=== PATIENT | female | born 1960 | race Caucasian/White ===

== ENCOUNTER 2019-08-25 09:17 | Outpatient (CLI) | payer OTHER, SELFPAY ==
--- NOTE | ~2019-08-25 | MM_ITS ---
EXAMINATION: MM screening amy BI w naeem HISTORY: Screening mammogram TECHNIQUE: Craniocaudal and mediolateral oblique 3-D tomosynthesis images were obtained and synthetic 2-D images were generated. CAD analysis was submitted and interpreted. COMPARISON: 08/19/2018, 08/13/2017, 07/17/2016 bilateral digital screening mammogram examinations BREAST PARENCHYMAL COMPOSITION: There are scattered areas of fibroglandular density. FINDINGS: There is a biopsy marker posteriorly in the upper outer quadrant of the right breast; histo ry of prior benign right breast biopsy. Occasional benign calcifications. There is no evidence of suspicious mass, calcification, or architec tural distortion to suggest malignancy in either breast. There has been no suspicious interval change . IMPRESSION: 1. No mammographic evidence of malignancy. 2. Recommend routine screening mammography in one year. BI-RADS Category 2: Benign finding(s). Reviewed, dictated and finalized at location A.
== END 2019-08-25 09:18 | disposition home or self-care (01) ==
LOC: ANHIMG 09:21
PROVIDERS: PCP Family Medicine; Visit Provider Obstetrics & Gynecology
DX: Z12.31 Encounter for screening mammogram for malignant neoplasm of breast (principal)
CPT/HCPCS: 77063; 77067

== ENCOUNTER 2020-09-27 09:39 | Outpatient (CLI) | payer OTHER, SELFPAY ==
--- NOTE | ~2020-09-27 | MM_ITS ---
EXAMINATION: MM screening amy BI w naeem HISTORY: Screening mammogram TECHNIQUE: Craniocaudal and mediolateral oblique 3-D tomosynthesis images were obtained and synthetic 2-D images were generated. Bilateral rotated lateral CC views. CAD analysis was submitted and interp reted. COMPARISON: No prior mammogram is available for comparison at this institution. BREAST PARENCHYMAL COMPOSITION: There are scattered areas of fibroglandular density. FINDINGS: Benign appearing stable calcified fibroadenoma in the upper outer quadrant of the right vito ast, with nearby biopsy marker. There is no evidence of suspicious mass, calcification, or architectu ral distortion to suggest malignancy in either breast. There has been no suspicious interval change. IMPRESSION: 1. No mammographic evidence of malignancy. 2. Recommend routine screening mammography in one year. BI-RADS Category 2: Benign finding(s). Reviewed, dictated and finalized at location A.
== END 2020-09-27 09:40 | disposition home or self-care (01) ==
PROVIDERS: PCP Family Medicine; Visit Provider Obstetrics & Gynecology
DX: Z12.31 Encounter for screening mammogram for malignant neoplasm of breast (principal)
CPT/HCPCS: 77063; 77067

== ENCOUNTER 2020-10-03 10:04 | Outpatient (CLI) | payer OTHER, SELFPAY ==
--- NOTE | ~2020-10-03 | DEXA_ITS ---
Bone Density Report Name: Mayra Hurst Age: 60 Sex: Female Ethnicity: White Date of : 1960 Indication: postmenopausal; height loss; hysterectomy; Referring Provider: CARLOS LARKIN Study: Bone densitometry was performed. Exam Date: October 03, 2020 Accession number: [id number] Bone Density: Region BMD T-score Z-score Classification AP Spine (L1-L4) 1.110 0.6 2.0 Normal Femoral Neck (Left) 0.776 -0.7 0.6 Normal Total Hip (Left) 0.859 -0.7 0.3 Normal Total Hip Bilateral Avg 0.847 -0.8 0.2 Normal Femoral Neck (Right) 0.776 -0.7 0.6 Normal Total Hip (Right) 0.833 -0.9 0.1 Normal World Health Organization criteria for BMD impression classify patients as: Normal (T-score at or above -1.0), Osteopenia (T-score between -1.0 and -2.5), or Osteoporosis (T-score at or below -2.5). 10-year Fracture Risk: FRAX not reported because: All T-scores for Spine Total, Hip Total, Femoral Neck at or above -1.0 Previous Exams: Region Exam Age BMD T-score BMD Change BMD Change Date g/cm2 vs Baseline vs Previous AP Spine(L1-L4) 10/03/2020 60 1.110 0.6 -0.068(-5.8%)# -0.023(-2.0%)* 09/16/2018 58 1.133 0.8 -0.045(-3.8%)# 0.007(0.7%) 08/14/2016 56 1.125 0.7 -0.053(-4.5%)# -0.036(-3.1%)* 07/06/2014 54 1.161 1.0 -0.017(-1.4%)# -0.017(-1.4%)# 06/17/2012 52 1.178 1.2 Total Hip(Left) 10/03/2020 60 0.859 -0.7 -0.087(-9.2%)# -0.064(-7.0%)* 09/16/2018 58 0.924 -0.2 -0.022(-2.4%)# 0.026(2.9%) 08/14/2016 56 0.898 -0.4 -0.048(-5.1%)# -0.012(-1.3%) 07/06/2014 54 0.909 -0.3 -0.037(-3.9%)# -0.037(-3.9%)# 06/17/2012 52 0.946 0.0 Total Hip(Right) 10/03/2020 60 0.833 -0.9 -0.063(-7.0%)# -0.001(-0.1%) 09/16/2018 58 0.834 -0.9 -0.062(-6.9%)# -0.007(-0.8%) 08/14/2016 56 0.841 -0.8 -0.055(-6.2%)# -0.018(-2.1%) 07/06/2014 54 0.858 -0.7 -0.038(-4.2%)# -0.038(-4.2%)# 06/17/2012 52 0.896 -0.4 *Denotes significance at 95% confidence level, LSC for AP Spine = 0.022 g/cm2, LSC for Total Hip = 0.027 g/cm2 Clinical Information Provided by Patient: Has used the following medications: Vitamin D, Calcium Has the following medical conditions: Hysterectomy Patient maximum height was 67 Menopause Age: 50 Onset of menses at age 11 Number of children 0 Impression: The patient has normal bone mass. The BMD for the AP Spine(L1-L4) decreased, changing by -2.0% since the last DXA exam. The BMD
== END 2020-10-03 10:05 | disposition home or self-care (01) ==
LOC: ANHIMG 10:08
PROVIDERS: PCP Family Medicine; Visit Provider Obstetrics & Gynecology
DX: Z13.820 Encounter for screening for osteoporosis (principal); Z78.0 Asymptomatic menopausal state
CPT/HCPCS: 77080

== ENCOUNTER → 2021-01-22 08:10 | Outpatient (CLI) | payer OTHER, SELFPAY ==
--- NOTE | ~2021-01-22 | XR_ITS ---
EXAMINATION: XR abdomen/kub 1V EXAM DATE: 01/22/2021 09:09 INDICATION: Other microscopic hematuria. TECHNIQUE: Frontal projection(s) of the abdomen for interpretation. Correlation is made to CT urogram same date. FINDINGS: Left sided 4 mm kidney stone identified, indicated. Bowel anastomosis material. Nonobstruct shaylee bowel gas pattern. No organomegaly. Some bony degenerative changes. IMPRESSION: Left nephrolithiasis. Reviewed, dictated and finalized at location B. IMPRESSION: Left nephrolithiasis.
--- NOTE | ~2021-01-22 | CT_ITS ---
EXAMINATION: CT abdomen pelvis wo/w con EXAM DATE: 01/22/2021 09:02 INDICATION: Other microscopic hematuria . TECHNIQUE: Spiral CT of the abdomen and pelvis was performed without contrast. The patient was then injected with small bolus intravenous Omnipaque 350, followed by delay of approximately 10 minutes to allow collecting system to opacify. A post contrast scan abdomen and pelvis was performed during inj ection of remaining contrast. A total of 130 cc intravenous contrast was administered. The dose-salima th product (DLP) for this examination was 1311.23 mGy-cm. The exposure was tailored according to pat ient size (auto mA exposure control), and iterative reconstruction (ASIR) was used as additional dose reduction technique. Comparison is made to prior examination from 03/11/2008. FINDINGS: There is 4 mm left nephrolithiasis. There are left renal peripelvic cysts. 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 The kidneys enhance symmetrically. There are no suspicious renal lesions. The calyces and opacified portions of ureters are unremarkable, without filling defects or focal suspicious strictures. The bladder is un remarkable. The uterus is not identified and has likely been surgically resected. The largest liver cyst is in the left liver lobe, measures 1.5 cm. The spleen, pancreas, and adrenal glands are unremarkable. Gallbladder is unremarkable. No biliary obstruction. There is no retrope ritoneal or pelvic lymphadenopathy. There is mild scattered arteriosclerotic disease. The appendix is not positively visualized. There is no pericecal inflammatory change to suggest appe ndicitis. There are several small bowel anastomosis sites. There is mild scattered colonic colonic di verticulosis. There is no adjacent inflammatory change to suggest diverticulitis. The stomach and sm all bowel are unremarkable. There is expected amount of colonic stool. No free intraperitoneal gas . Mild cardiomegaly. Some dependent groundglass opacities, mosaic attenuation. Could be mild edema or air trapping. There are no osteoblastic or osteolytic lesions identified. IMPRESSION: 1. Duplicated right ureters. 2. Left nephrolithiasis. Reviewed, dictated and finalized at location B.
[2021-01-22 08:38] LABS: Estimated Glomerular Filt Rate > 60
== END ==
PROVIDERS: Visit Provider Urology
DX: R31.29 Other microscopic hematuria (principal); N20.0 Calculus of kidney
CPT/HCPCS: 74018; 74178; Q9967

== ENCOUNTER 2021-04-23 00:47 | Day surgery (SDC) | payer OTHER, SELFPAY ==
[2021-04-11 11:24] VITALS: BMI 24.1
[2021-04-23 10:05] VITALS: BP 124/78; PULSE 69; RESP 18; TEMP 36.8; O2SAT 100
--- NOTE | 2021-04-23 10:14 | PM.HPGS ---
History of Present Illness History of Present Illness Consent: Risks, benefits, and alternatives have been discussed and questions answered. Patient agrees to proceed with procedure. Chief complaint: neoplasm screening Narrative: Mayra Hurst is a 60 year old female here for screening colonoscopy, last one 10 years ago Review of Systems Constitutional: Constitutional: Denies headache(s) and Denies weakness Eyes: Eyes: Denies blurry vision ENT: Reports Normal hearing present, Denies headache(s) and Denies neck pain Cardiovascular: Cardiovascular: Denies chest pain and Denies dyspnea Respiratory: Respiratory: Denies dyspnea Gastrointestinal: Gastrointestinal: Reports no additional gastrointestinal complaints Genitourinary: Genitourinary: Denies dysuria Musculoskeletal: Musculoskeletal: Denies neck pain Integumentary/Breasts: Skin/Breast: Denies dry skin Neurologic: Reports Normal hearing present, Denies headache(s) and Denies weakness Psychiatric: Psychiatric: Denies anxiety Endocrine: Endocrine: Denies change in body appearance Hematologic/Lymphatic: Hematologic/Lymphatic: Denies easy bleeding Allergic/Immunologic: Allergic/Immunologic: Denies urticaria PMFSH Past Medical History Medical History (Updated 04/23/21 @ 10:15 by Neftaly Bingham MD) Colon cancer screening Hypercholesteremia Hyperlipidemia Vitamin B12 deficiency Vitamin D deficiency Surgical History Surgical History History of appendectomy 01/2010 History of total hysterectomy 01/2010 Family History Family History Mother Hypertension Grandparent Cerebrovascular accident Other Diabetes mellitus Family history of cardiovascular disease Social History Social History Smoking status: Never smoker Second hand tobacco smoke exposure: No Alcohol intake: never Substance use: never Substance use type: does not use Living arrangements: alone Additional occupation/education comments: [employer] Gender identity (if verbalized by the patient): Female Spiritual care concerns: No Meds Home Medications and Allergies Home Medications Medication Instructions Recorded Confirmed Type cholecalciferol (vitamin D3) 50 50 mcg PO DAILY 05/06/20 04/23/21 History mcg (2,000 unit) capsule rosuvastatin 20 mg tablet 20 mg PO .QHS #90 tablet 11/20/20 04/11/21 Rx Allergies Allergy/AdvReac Type Severity Reaction Status Date / Time No Known Allergies Allergy Mild Verified 04/23/21 10:04 Vital Signs Vital Signs - 24 hr 04/23/21 10:05 Temperature 98.2 F Pulse Rate 69 Respiratory Rate 18 Blood Pressure 124/78 Pulse Oximetry 100 Exam Const: General: comfortable and no acute distress HENMT: General nose exam: Normal nares present Eyes: General: appearance normal, both eyes and all related structures Neck: Neck: no JVD Resp: Auscultation: clear to auscultation bilaterally Cardio: Rate: regular rate Rhythm: regular rhythm GI: Inspection: non-distended GI Palp: Yes Soft to palpation Skin: General skin exam: normal color Neuro: General: gait normal Speech: normal speech Extrem: General: normal to inspection Psych: Mental Status: mental status grossly normal Assessment and Plan Assessment and plan (1) Colon cancer screening: Code(s): Z12.11 - Encounter for screening for malignant neoplasm of colon Status: Acute Assessment and Plan: colonoscopy
[2021-04-23] MEDS: LACTATED RINGERS 1,000 ML 150 ML IV CONT (10:15)
--- NOTE | 2021-04-23 10:18 | WPDANESEPPF ---
Anes - Initial Pre Proc Eval Procedure: Operation Date: 04/23/21 11:00 Proposed Procedures p Screening Colonoscopy - Neftaly Bingham MD Date/Time: 04/23/21 10:18 Surgeon: Neftaly Bingham MD Pre Op Diagnosis: neoplasm screening Patient Data Age: 60 Gender: F Height: 1.7 m Weight: 67.9 kg Last Vital Signs Temp 98.2 F 04/23/21 10:05 Pulse 69 04/23/21 10:05 Resp 18 04/23/21 10:05 BP 124/78 04/23/21 10:05 Pulse Ox 100 04/23/21 10:05 Allergies Allergy/AdvReac Type Severity Reaction Status Date / Time No Known Allergies Allergy Mild Verified 04/23/21 10:04 Home Medications Medication Instructions Recorded Confirmed Type cholecalciferol (vitamin D3) 50 50 mcg PO DAILY 05/06/20 04/23/21 History mcg (2,000 unit) capsule rosuvastatin 20 mg tablet 20 mg PO .QHS #90 tablet 11/20/20 04/11/21 Rx Patient hx anesthesia problems: none Family hx anesthesia problems: none Results Review: All pre-operative results and documents have been reviewed as part of the pre-operative evaluation. [facility] Past Medical History Medical History (Updated 04/23/21 @ 10:15 by Neftaly Bingham MD) Colon cancer screening Hypercholesteremia Hyperlipidemia Vitamin B12 deficiency Vitamin D deficiency Surgical History Surgical History History of appendectomy 01/2010 History of total hysterectomy 01/2010 Family History Family History Mother Hypertension Grandparent Cerebrovascular accident Other Diabetes mellitus Family history of cardiovascular disease Social History Social History Smoking status: Never smoker Second hand tobacco smoke exposure: No Alcohol intake: never Substance use: never Substance use type: does not use Living arrangements: alone Additional occupation/education comments: [employer] Gender identity (if verbalized by the patient): Female Spiritual care concerns: No Anes - Eval Final PreProcedure Day of Procedure 04/23/21 10:18 Patient weight: normal Heart: regular rate and rhythm Lungs: clear to auscultation Airway: Mallampati scale class II Neurological: alert and oriented Last oral intake: >/= 8 hours ASA classification: II Emergent: no Anesthetic plan: proceed Anesthesia type and monitoring: general GIVS and standard monitoring Results Review: All pre-operative results and documents have been reviewed as part of the pre-operative evaluation. Informed Consent: The patient's anesthetic plan and its attendant risks and benefits were discussed with the patient/family/POA. Questions were solicited and answers provided to the satisfaction of the patient/family/POA.
[2021-04-23 10:34] VITALS: BP 94/58; PULSE 67; RESP 17; O2SAT 97
[2021-04-23 10:44] VITALS: BP 102/56; PULSE 64; RESP 23; O2SAT 99
[2021-04-23 10:54] VITALS: BP 118/75; PULSE 62; RESP 20; O2SAT 99
== END 2021-04-23 11:01 | disposition home or self-care (01) ==
PROVIDERS: PCP Family Medicine; Visit Provider Internal Medicine Gastroenterology
PROC: 0DJD8ZZ Inspection of Lower Intestinal Tract, Via Natural or Artificial Opening Endoscopic (ICD-10-PCS; CPT 45378; principal; 2021-04-23 11:00)
DX: Z12.11 Encounter for screening for malignant neoplasm of colon (principal); E78.00 Pure hypercholesterolemia, unspecified; E78.5 Hyperlipidemia, unspecified; E53.8 Deficiency of other specified B group vitamins; E55.9 Vitamin D deficiency, unspecified; K57.30 Diverticulosis of large intestine without perforation or abscess without bleeding
CPT/HCPCS: 45378; J2704; J7120

== ENCOUNTER 2021-07-24 10:19 | Outpatient (CLI) | payer OTHER, SELFPAY ==
--- NOTE | ~2021-07-24 | XR_ITS ---
EXAMINATION: XR abdomen/kub 1V INDICATION: Left-sided kidney stone TECHNIQUE: Supine views of the abdomen were obtained on 2 radiographs. COMPARISON: 01/22/2021 FINDINGS: A stable 4 mm stone projects in the left kidney upper pole. No additional urinary tract lyn culi are seen. There are surgical changes in the right mid abdomen and right pelvis. Mild osteoarthri tis is noted in the hips. IMPRESSION: 1. Stable left nephrolithiasis. Reviewed, dictated and finalized at location B.
== END 2021-07-24 10:20 | disposition home or self-care (01) ==
LOC: ANHIMG 10:23
PROVIDERS: PCP Family Medicine; Visit Provider Nurse Practitioner Family
DX: N20.0 Calculus of kidney (principal)
CPT/HCPCS: 74018

== ENCOUNTER 2021-10-10 09:25 | Outpatient (CLI) | payer OTHER, SELFPAY ==
--- NOTE | ~2021-10-10 | MM_ITS ---
EXAMINATION: MM screening [facility] BI w naeem HISTORY: Screening mammogram TECHNIQUE: Craniocaudal and mediolateral oblique 3-D tomosynthesis images were obtained and synthetic 2-D images were generated. CAD analysis was submitted and interpreted. COMPARISON: 09/27/2020, 08/25/2019, 08/19/2018 BREAST PARENCHYMAL COMPOSITION: The breasts are heterogeneously dense, which may obscure small masses . FINDINGS: Scattered benign-appearing calcifications are present. There is no suspicious mass, calcifi cation, or architectural distortion to suggest malignancy in either breast. There has been no suspici ous interval change. IMPRESSION: 1. No mammographic evidence of malignancy. 2. Recommend routine screening mammography in one year. BI-RADS Category 2: Benign finding(s). Reviewed, dictated and finalized at location A.
== END 2021-10-10 09:26 | disposition home or self-care (01) ==
LOC: ANHIMG 09:26
PROVIDERS: PCP Family Medicine; Visit Provider Obstetrics & Gynecology
DX: Z12.31 Encounter for screening mammogram for malignant neoplasm of breast (principal)
CPT/HCPCS: 77063; 77067

== ENCOUNTER 2021-12-11 10:25 | Outpatient (CLI) | payer OTHER, SELFPAY ==
[2021-12-11 13:06] LABS: Eosinophils Absolute Auto 0.1 K/mm3 (0-0.3); Eosinophils Percent Auto 1.8 % (0-4.4); Hematocrit 38.9 % (37.0-47.0); Hemoglobin 12.5 g/dL (12.0-15.0); Immature Granulocyte Absolute 0.01 K/mm3 (0.00-0.031); Immature Granulocyte Percent A 0.3 % (0-0.5); Lymphocytes Percent Auto 28.6 % (18.3-44.2); Mean Corpuscular HGB Conc 32.1 g/dl (32-36); Mean Corpuscular Hemoglobin 30.9 pg (26-34); Mean Platelet Volume 10.6 fl (7.4-10.4); Monocytes Absolute Auto 0.4 K/mm3 (0.1-0.6); Monocytes Percent Auto 10.1 % (2.6-8.5); Neutrophils Absolute Auto 2.2 K/mm3 (1.3-6.7); Neutrophils Percent Auto 58.2 % (45.5-73.1); Platelet Count Result 309 k/mm3 (150-375); Red Blood Count 4.05 M/mm3 (4.2-5.4); Red Cell Distribution Width 13.2 % (11.5-14.5); White Blood Count 3.9 K/mm3 (4.5-10.0)
[2021-12-11 13:20] LABS: Albumin Level 4.4 g/dL (3.5-5.1); Bilirubin,Total 0.5 mg/dL (0.2-1.3); Carbon Dioxide 28 mmol/L (22-30); Chloride 101 mmol/L (98-107)
[2021-12-11 13:54] LABS: Thyroid Stimulating Hormone Reflex 0.919 uIU/mL (0.465-4.68)
[2021-12-12 04:48] LABS: Anion Gap 8 mmol/L (8-16); Sodium 137 mmol/L (137-145)
[2021-12-12 04:49] LABS: Blood Urea Nitrogen 17 mg/dL (7-17); Estimated Glomerular Filt Rate > 60; Potassium 4.6 mmol/L (3.4-5.0)
[2021-12-12 04:50] LABS: Aspartate Amino Transferase 30 U/L (14-36); Calcium 9.1 mg/dL (8.4-10.2); Glucose 95 mg/dL (65-110)
[2021-12-12 04:51] LABS: Alanine Aminotransferase 20 U/L (6-35); Total Protein 7.1 g/dL (6.3-8.2); Triglycerides 65 mg/dL (<150)
[2021-12-12 04:52] LABS: Alkaline Phosphatase 78 U/L (38-126); Cholesterol 195 mg/dL (0-200); HDL Direct 66 mg/dL; LDL Cholesterol Direct 98 mg/dL
== END 2021-12-11 10:26 | disposition home or self-care (01) ==
LOC: ANHGOSHLAB 10:31
PROVIDERS: PCP Family Medicine; Visit Provider Family Medicine
DX: E78.5 Hyperlipidemia, unspecified (principal); Z79.899 Other long term (current) drug therapy; E55.9 Vitamin D deficiency, unspecified; Z13.29 Encounter for screening for other suspected endocrine disorder
CPT/HCPCS: 36415; 80053; 80061; 82306; 84443; 85025

== ENCOUNTER 2022-08-11 10:32 | Outpatient (CLI) | payer OTHER, SELFPAY ==
--- NOTE | ~2022-08-11 | XR_ITS ---
XR abdomen/kub 1V 08/11/2022 10:54 INDICATION: Angiomyolipoma TECHNIQUE: KUB COMPARISON: 07/24/2021 FINDINGS: Bowel gas pattern is normal. There is no evidence of free air, mass, organomegaly, ascites or obstruction. There is a left renal stone. Kidneys partially obscured by bowel content. The bones appear intact. IMPRESSION: 1: Left nephrolithiasis.. Reviewed, dictated and finalized at location L. IMPRESSION: 1: Left nephrolithiasis..
== END 2022-08-11 10:33 | disposition home or self-care (01) ==
LOC: ANHIMG 10:42
PROVIDERS: PCP Family Medicine; Visit Provider Nurse Practitioner Family
DX: D17.71 Benign lipomatous neoplasm of kidney (principal); N20.0 Calculus of kidney
CPT/HCPCS: 74018

== ENCOUNTER 2022-08-26 12:38 | Outpatient (CLI) | payer OTHER, SELFPAY ==
--- NOTE | ~2022-08-26 | CT_ITS ---
EXAMINATION: CT abdomen pelvis wo con DATE: 08/26/2022 13:23 INDICATION: Left kidney stone TECHNIQUE: Computed tomography (CT) of the abdomen and pelvis was performed without intravenous contr ast. The dose-length product (DLP) was 200.92 mGy-cm. Automated exposure control and iterative recons truction technique were employed. COMPARISON: 01/22/2021 FINDINGS: There is chronic atelectasis of the visualized lung bases. The heart size is normal. Cysts of the liver measure up to 1.5 cm in the left hepatic lobe. The spleen and pancreas are normal. The g allbladder is surgically absent. Stable low-density masses of the adrenal glands are consistent with adenomas. The right kidney is unremarkable. There is an 5 mm nonobstructing stone of the left kidney. Peripelvic cysts are also noted in the left kidney. No stones are identified in the ureters or bladd er. No hydronephrosis or hydroureter. Colonic diverticulosis is present without evidence of diverticu litis. No pathologically enlarged abdominal or pelvic lymph nodes are identified. No free intraperito antonia gas or evidence of bowel obstruction. There are surgical changes in the small bowel. There is mo derate lumbar spondylosis. IMPRESSION: 1. Nonobstructing left nephrolithiasis. Reviewed, dictated and finalized at location B.
== END 2022-08-26 12:39 | disposition home or self-care (01) ==
PROVIDERS: PCP Family Medicine; Visit Provider Nurse Practitioner Family
DX: N20.0 Calculus of kidney (principal)
CPT/HCPCS: 74176

== ENCOUNTER 2022-11-25 10:26 | Outpatient (CLI) | payer OTHER, SELFPAY ==
--- NOTE | ~2022-11-25 | XR_ITS ---
XR abdomen/kub 1V 11/25/2022 10:42 Indication: Kidney stone Procedure: KUB Comparison: CT dated 08/26/2022 Findings: There is a left renal stone. There is a gallstone. Bowel pattern nonobstructive. Mild lumba r spondylosis. No acute osseous abnormality. Impression: 1: Left renal stone measuring approximately 4 mm. 2: Cholelithiasis. Reviewed, dictated and finalized at location A. Impression: 1: Left renal stone measuring approximately 4 mm. 2: Cholelithiasis.
== END 2022-11-25 10:27 | disposition home or self-care (01) ==
PROVIDERS: PCP Family Medicine; Visit Provider Urology
DX: N20.0 Calculus of kidney (principal); K80.20 Calculus of gallbladder without cholecystitis without obstruction
CPT/HCPCS: 74018

== ENCOUNTER 2022-12-31 11:05 | Outpatient (CLI) | payer OTHER, SELFPAY ==
[2022-12-31 20:00] LABS: LDL Cholesterol Direct 96 mg/dL
[2022-12-31 20:06] LABS: Basophils Percent Auto 0.8 % (0.2-1.2); Hematocrit 41.3 % (37.0-47.0); Hemoglobin 13.8 g/dL (12.0-15.0); Lymphocytes Absolute Auto 1.24 K/mm3 (0.9-3.2); Lymphocytes Percent Auto 31.4 % (18.3-44.2); Mean Corpuscular HGB Conc 33.4 g/dl (32-36); Mean Corpuscular Hemoglobin 31.7 pg (26-34); Mean Corpuscular Volume 94.9 fl (80-100); Mean Platelet Volume 10.6 fl (7.4-10.4); Monocytes Absolute Auto 0.5 K/mm3 (0.1-0.6); Monocytes Percent Auto 12.7 % (2.6-8.5); Neutrophils Absolute Auto 2.1 K/mm3 (1.3-6.7); Neutrophils Percent Auto 54.1 % (45.5-73.1); Platelet Count Result 327 k/mm3 (150-375); Red Blood Count 4.35 M/mm3 (4.2-5.4); Red Cell Distribution Width 13.2 % (11.5-14.5)
[2022-12-31 20:33] LABS: Alanine Aminotransferase 26 U/L (6-35); Albumin Level 4.6 g/dL (3.5-5.1); Alkaline Phosphatase 87 U/L (38-126); Anion Gap 4 mmol/L (8-16); Aspartate Amino Transferase 45 U/L (14-36); Blood Urea Nitrogen 16 mg/dL (7-17); Calcium 9.2 mg/dL (8.4-10.2); Carbon Dioxide 29 mmol/L (22-30); Chloride 103 mmol/L (98-107); Cholesterol 196 mg/dL (0-200); Estimated Glomerular Filt Rate > 60; Glucose 93 mg/dL (65-110); HDL Direct 71 mg/dL; Potassium 4.5 mmol/L (3.4-5.0); Sodium 136 mmol/L (137-145); Triglycerides 70 mg/dL (<150)
[2022-12-31 21:34] LABS: Vitamin D 25 Hydroxy 38.5 ng/mL
[2022-12-31 22:06] LABS: Thyroid Stimulating Hormone Reflex 0.973 uIU/mL (0.465-4.68)
== END 2022-12-31 11:06 | disposition home or self-care (01) ==
LOC: ANHGOSHLAB 11:07
PROVIDERS: PCP Family Medicine; Visit Provider Family Medicine
DX: E78.5 Hyperlipidemia, unspecified (principal); R32 Unspecified urinary incontinence; Z13.29 Encounter for screening for other suspected endocrine disorder; Z00.00 Encounter for general adult medical examination without abnormal findings; Z79.899 Other long term (current) drug therapy; E55.9 Vitamin D deficiency, unspecified; E53.8 Deficiency of other specified B group vitamins
CPT/HCPCS: 36415; 80053; 80061; 82306; 82607; 84443; 85025

== ENCOUNTER 2023-01-06 10:08 | Outpatient (CLI) | payer OTHER, SELFPAY ==
--- NOTE | ~2023-01-06 | MM_ITS ---
EXAMINATION: MM screening amy BI w naeem HISTORY: Screening mammogram TECHNIQUE: Craniocaudal and mediolateral oblique 3-D tomosynthesis images were obtained and synthetic 2-D images were generated. CAD analysis was submitted and interpreted. COMPARISON: 10/10/2021, 09/19/2020, 08/25/2019 bilateral screening mammogram examinations BREAST PARENCHYMAL COMPOSITION: The breasts are heterogeneously dense, which may obscure small masses . FINDINGS: There is a biopsy marker on the right; history of prior benign right breast biopsy. Occasional benign calcifications. There is no evidence of suspicious mass, calcification, or architec tural distortion to suggest malignancy in either breast. There has been no suspicious interval change . IMPRESSION: 1. No mammographic evidence of malignancy. 2. Recommend routine screening mammography in one year. BI-RADS Category 2: Benign finding(s). Reviewed, dictated and finalized at location A.
== END 2023-01-06 10:09 | disposition home or self-care (01) ==
LOC: ANHIMG 10:10
PROVIDERS: PCP Family Medicine; Visit Provider Obstetrics & Gynecology
DX: Z12.31 Encounter for screening mammogram for malignant neoplasm of breast (principal)
CPT/HCPCS: 77063; 77067

== ENCOUNTER 2023-02-11 10:52 | Outpatient (CLI) | payer OTHER, SELFPAY ==
[2023-02-11 13:08] LABS: Alanine Aminotransferase 22 U/L (6-35); Albumin Level 4.8 g/dL (3.5-5.1); Alkaline Phosphatase 72 U/L (38-126); Anion Gap 8 mmol/L (8-16); Aspartate Amino Transferase 27 U/L (14-36); Bilirubin,Total 0.8 mg/dL (0.2-1.3); Blood Urea Nitrogen 12 mg/dL (7-17); Calcium 9.3 mg/dL (8.4-10.2); Carbon Dioxide 27 mmol/L (22-30); Chloride 104 mmol/L (98-107); Estimated Glomerular Filt Rate > 60; Glucose 92 mg/dL (65-110); Sodium 139 mmol/L (137-145)
== END 2023-02-11 10:53 | disposition home or self-care (01) ==
LOC: ANHLAB 10:53
PROVIDERS: PCP Family Medicine; Visit Provider Family Medicine
DX: R74.01 Elevation of levels of liver transaminase levels (principal)
CPT/HCPCS: 36415; 80053

== ENCOUNTER 2023-04-08 09:55 | Outpatient (CLI) | payer OTHER, SELFPAY ==
--- NOTE | ~2023-04-08 | DEXA_ITS ---
Bone Density Report Name: LUZ MILLER Age: 62 Sex: Female Ethnicity: White Date of : 1960 Indication: postmenopausal; screening for osteoporosis; hysterectomy; Referring Provider: CARLOS LARKIN Study: Bone densitometry was performed. Exam Date: April 08, 2023 Accession number: [id number] Bone Density: Region BMD T-score Z-score Classification AP Spine(L1-L4) 1.099 0.5 2.1 Normal Femoral Neck (Left) 0.760 -0.8 0.6 Normal Total Hip (Left) 0.847 -0.8 0.3 Normal Femoral Neck (Right) 0.743 -1.0 0.5 Normal Total Hip (Right) 0.816 -1.0 0.1 Normal Total Hip Mean 0.832 -0.9 0.2 Normal World Health Organization criteria for BMD impression classify patients as: Normal (T-score at or above -1.0), Osteopenia (T-score between -1.0 and -2.5), or Osteoporosis (T-score at or below -2.5). 10-year Fracture Risk: FRAX not reported because: All T-scores for Spine Total, Hip Total, Femoral Neck at or above -1.0 Previous Exams: Region Exam Age BMD T-score BMD Change BMD Change Date g/cm2 vs Baseline vs Previous AP Spine (L1-L4) 04/08/2023 62 1.099 0.5 -0.079 (-6.7%) -0.011 (-1.0%) 10/03/2020 60 1.110 0.6 -0.068 (-5.8%) -0.023 (-2.0%) 09/16/2018 58 1.133 0.8 -0.045 (-3.8%) 0.007 (0.7%) 08/14/2016 56 1.125 0.7 -0.053 (-4.5%) -0.036 (-3.1%) 07/06/2014 54 1.161 1.0 -0.017 (-1.4%) -0.017 (-1.4%) 06/17/2012 52 1.178 1.2 Total Hip(Left) 04/08/2023 62 0.847 -0.8 -0.099 (-10.5% -0.012 (-1.4%) 10/03/2020 60 0.859 -0.7 -0.087 (-9.2%) -0.064 (-7.0%) 09/16/2018 58 0.924 -0.2 -0.022 (-2.4%) 0.026 (2.9%) 08/14/2016 56 0.898 -0.4 -0.048 (-5.1%) -0.012 (-1.3%) 07/06/2014 54 0.909 -0.3 -0.037 (-3.9%) -0.037 (-3.9%) 06/17/2012 52 0.946 0.0 Total Hip(Right) 04/08/2023 62 0.816 -1.0 -0.079 (-8.9%) -0.017 (-2.0%) 10/03/2020 60 0.833 -0.9 -0.063 (-7.0%) -0.001 (-0.1%) 09/16/2018 58 0.834 -0.9 -0.062 (-6.9%) -0.007 (-0.8%) 08/14/2016 56 0.841 -0.8 -0.055 (-6.2%) -0.018 (-2.1%) 07/06/2014 54 0.858 -0.7 -0.038 (-4.2%) -0.038 (-4.2%) 06/17/2012 52 0.896 -0.4 *Denotes significance at 95% confidence level, LSC for AP Spine = 0.022 g/cm2, LSC for Total Hip = 0.027 g/cm2 # Denotes dissimilar scan types or analysis methods Clinical Information Provided by Patient: Has used the following medications: Vitamin D, Calcium Has the following medical conditions: Hysterectomy Patient maximum height was 6
== END 2023-04-08 09:56 | disposition home or self-care (01) ==
PROVIDERS: PCP Family Medicine; Visit Provider Obstetrics & Gynecology
DX: Z78.0 Asymptomatic menopausal state (principal)
CPT/HCPCS: 77080

== ENCOUNTER 2024-01-05 10:04 | Outpatient (CLI) | payer OTHER, SELFPAY ==
[2024-01-05 19:47] LABS: Basophils Percent Auto 0.6 % (0.2-1.2); Eosinophils Absolute Auto 0.1 K/mm3 (0-0.3); Eosinophils Percent Auto 1.5 % (0-4.4); Hematocrit 37.3 % (37.0-47.0); Immature Granulocyte Absolute 0.01 K/mm3 (0.00-0.031); Immature Granulocyte Percent A 0.2 % (0-0.5); Lymphocytes Absolute Auto 1.06 K/mm3 (0.9-3.2); Lymphocytes Percent Auto 22.9 % (18.3-44.2); Mean Corpuscular HGB Conc 32.2 g/dl (32-36); Mean Corpuscular Hemoglobin 31.6 pg (26-34); Mean Corpuscular Volume 98.2 fl (80-100); Mean Platelet Volume 10.8 fl (7.4-10.4); Monocytes Absolute Auto 0.4 K/mm3 (0.1-0.6); Neutrophils Absolute Auto 3.1 K/mm3 (1.3-6.7); Neutrophils Percent Auto 66.8 % (45.5-73.1); Platelet Count Result 314 k/mm3 (150-375); Red Cell Distribution Width 13.1 % (11.5-14.5); White Blood Count 4.6 K/mm3 (4.5-10.0)
[2024-01-05 20:29] LABS: Alanine Aminotransferase 25 U/L (6-35); Albumin Level 4.2 g/dL (3.5-5.1); Alkaline Phosphatase 72 U/L (38-126); Anion Gap 6 mmol/L (4-12); Aspartate Amino Transferase 34 U/L (14-36); Bilirubin,Total 0.6 mg/dL (0.2-1.3); Blood Urea Nitrogen 16 mg/dL (7-17); Calcium 9.1 mg/dL (8.4-10.2); Carbon Dioxide 29 mmol/L (22-30); Chloride 102 mmol/L (98-107); Cholesterol 172 mg/dL (0-200); Estimated Glomerular Filt Rate > 60; Glucose 93 mg/dL (65-110); HDL Direct 70 mg/dL; Potassium 4.4 mmol/L (3.4-5.0); Sodium 137 mmol/L (137-145); Triglycerides 53 mg/dL (<150)
[2024-01-05 20:40] LABS: LDL Cholesterol Direct 83 mg/dL
[2024-01-05 21:57] LABS: Vitamin D 25 Hydroxy 68.6 ng/mL
[2024-01-05 22:10] LABS: Thyroid Stimulating Hormone Reflex 0.613 uIU/mL (0.465-4.68)
== END 2024-01-05 10:05 | disposition home or self-care (01) ==
LOC: ANHGOSHLAB 10:05
PROVIDERS: PCP Family Medicine; Visit Provider Family Medicine
DX: Z00.00 Encounter for general adult medical examination without abnormal findings (principal); E78.5 Hyperlipidemia, unspecified; Z13.29 Encounter for screening for other suspected endocrine disorder; E53.8 Deficiency of other specified B group vitamins; Z79.899 Other long term (current) drug therapy; E55.9 Vitamin D deficiency, unspecified
CPT/HCPCS: 36415; 80053; 80061; 82306; 82607; 84443; 85025

== ENCOUNTER 2024-02-02 09:34 | Outpatient (CLI) | payer OTHER, SELFPAY ==
--- NOTE | ~2024-02-02 | MM_ITS ---
EXAMINATION: MM screening amy BI w naeem HISTORY: Screening TECHNIQUE: Craniocaudal and mediolateral oblique 3-D tomosynthesis images were obtained and synthetic 2-D images were generated. CAD analysis was submitted and interpreted. COMPARISON: Comparison to multiple prior studies sequentially, with oldest reviewed study dated 08/13. BREAST PARENCHYMAL COMPOSITION: Not dense: There are scattered areas of fibroglandular density. FINDINGS: There is no evidence of suspicious mass, calcification, or architectural distortion to sugg est malignancy in either breast. There has been no suspicious interval change. IMPRESSION: 1. No mammographic evidence of malignancy. 2. Recommend routine screening mammography in one year. BI-RADS Category 1: Negative Reviewed, dictated and finalized at location B.
== END 2024-02-02 09:35 | disposition home or self-care (01) ==
LOC: ANHIMG 09:38
PROVIDERS: PCP Family Medicine; Visit Provider Obstetrics & Gynecology
DX: Z12.31 Encounter for screening mammogram for malignant neoplasm of breast (principal)
CPT/HCPCS: 77063; 77067

== ENCOUNTER 2025-01-10 10:46 | Outpatient (CLI) | payer OTHER, SELFPAY ==
[2025-01-10 12:53] LABS: Hematocrit 43.1 % (37.0-47.0); Hemoglobin 13.9 g/dL (12.0-15.0); Immature Granulocyte Percent A 0.2 % (0-0.5); Lymphocytes Absolute Auto 1.02 K/mm3 (0.9-3.2); Mean Corpuscular HGB Conc 32.3 g/dl (32-36); Mean Corpuscular Hemoglobin 30.9 pg (26-34); Mean Corpuscular Volume 95.8 fl (80-100); Nucleated Red Blood Cells Absolute Auto 0.000 K/mm3 (0.0-0.012); Nucleated Red Blood Cells Perc 0.0 % (0.0-0.2); Platelet Count Result 290 k/mm3 (150-375); Red Blood Count 4.50 M/mm3 (4.2-5.4); White Blood Count 5.0 K/mm3 (4.5-10.0)
[2025-01-10 13:02] LABS: Alanine Aminotransferase 23 U/L (6-35); Albumin Level 4.6 g/dL (3.5-5.1); Alkaline Phosphatase 88 U/L (38-126); Anion Gap 8 mmol/L (4-12); Aspartate Amino Transferase 41 U/L (14-36); Bilirubin,Total 0.8 mg/dL (0.2-1.3); Blood Urea Nitrogen 16 mg/dL (7-17); Calcium 9.2 mg/dL (8.4-10.2); Carbon Dioxide 28 mmol/L (22-30); Chloride 102 mmol/L (98-107); Cholesterol 182 mg/dL (0-200); Estimated Glomerular Filt Rate > 60; Glucose 95 mg/dL (65-110); HDL Direct 67 mg/dL; Potassium 4.1 mmol/L (3.4-5.0); Sodium 138 mmol/L (137-145); Total Protein 7.6 g/dL (6.3-8.2); Triglycerides 50 mg/dL (<150)
[2025-01-10 13:32] LABS: Thyroid Stimulating Hormone Reflex 0.673 uIU/mL (0.465-4.68)
[2025-01-10 13:40] LABS: Hemoglobin A1C 5.7 % (<5.7)
[2025-01-10 16:25] LABS: Vitamin B12 750.0 pg/mL (239-931)
== END 2025-01-10 10:47 | disposition home or self-care (01) ==
LOC: ANHGOSHLAB 10:47
PROVIDERS: PCP Family Medicine; Visit Provider Family Medicine
DX: Z00.00 Encounter for general adult medical examination without abnormal findings (principal); R73.9 Hyperglycemia, unspecified; E78.5 Hyperlipidemia, unspecified; E55.9 Vitamin D deficiency, unspecified; E53.8 Deficiency of other specified B group vitamins; Z79.899 Other long term (current) drug therapy
CPT/HCPCS: 36415; 80053; 80061; 82306; 82607; 83036; 84443; 85025

== ENCOUNTER 2025-02-07 08:55 | Outpatient (CLI) | payer OTHER, SELFPAY ==
--- NOTE | ~2025-02-07 | MM_ITS ---
EXAMINATION: MM screening [facility] BI w naeem HISTORY: Screening TECHNIQUE: Craniocaudal and mediolateral oblique 3-D tomosynthesis images were obtained and synthetic 2-D images were generated. CAD analysis was submitted and interpreted. COMPARISON: Comparison to multiple prior studies sequentially, with oldest reviewed study dated 08/25/2019. BREAST PARENCHYMAL COMPOSITION: The breasts are heterogeneously dense, which may obscure small masses. FINDINGS: There is no evidence of suspicious mass, calcification, or architectural distortion to suggest malignancy in either breast. Scattered benign-appearing calcifications are present. IMPRESSION: 1. No mammographic evidence of malignancy. 2. Recommend routine screening mammography in one year. BI-RADS Category 2: Benign finding(s). Reviewed, dictated and finalized at location B.
== END 2025-02-07 08:56 | disposition home or self-care (01) ==
LOC: ANHFOHIMG 08:55
PROVIDERS: PCP Family Medicine; Visit Provider Obstetrics & Gynecology
DX: Z12.31 Encounter for screening mammogram for malignant neoplasm of breast (principal)
CPT/HCPCS: 77063; 77067

== ENCOUNTER 2025-04-19 09:06 | Outpatient (CLI) | payer OTHER, SELFPAY ==
--- NOTE | ~2025-04-19 | DEXA_ITS ---
Bone Density Report Name: LUZ MILLER Age: 64 Sex: Female Ethnicity: White Date of : 1960 Indication: postmenopausal; screening for osteoporosis; height loss; hysterectomy; Referring Provider: CARLOS LARKIN Study: Bone densitometry was performed. Exam Date: April 19, 2025 Accession number: [id number] Bone Density: Region BMD T-score Z-score Classification AP Spine(L1-L4) 1.049 0.0 1.8 Normal Femoral Neck (Left) 0.762 -0.8 0.7 Normal Total Hip (Left) 0.859 -0.7 0.5 Normal Femoral Neck (Right) 0.688 -1.5 0.0 Osteopenia Total Hip (Right) 0.804 -1.1 0.1 Osteopenia Total Hip Mean 0.832 -0.9 0.3 Normal World Health Organization criteria for BMD impression classify patients as: Normal (T-score at or above -1.0), Osteopenia (T-score between -1.0 and -2.5), or Osteoporosis (T-score at or below -2.5). 10-year Fracture Risk(1): Major Osteoporotic Fracture 8.7% Hip Fracture 0.8% Reported Risk Factors: [place] (), Neck BMD=0.688, BMI=26.3 (1) FRAX(R) Version 3.08. Fracture probability calculated for an untreated patient. Fracture probability may be lower if the patient has received treatment. Previous Exams: Region Exam Age BMD T-score BMD Change BMD Change Date g/cm2 vs Baseline vs Previous AP Spine (L1-L4) 04/19/2025 64 1.049 0.0 -0.129 (-10.9% -0.050 (-4.5%) 04/08/2023 62 1.099 0.5 -0.079 (-6.7%) -0.011 (-1.0%) 10/03/2020 60 1.110 0.6 -0.068 (-5.8%) -0.023 (-2.0%) 09/16/2018 58 1.133 0.8 -0.045 (-3.8%) 0.007 (0.7%) 08/14/2016 56 1.125 0.7 -0.053 (-4.5%) -0.036 (-3.1%) 07/06/2014 54 1.161 1.0 -0.017 (-1.4%) -0.017 (-1.4%) 06/17/2012 52 1.178 1.2 Total Hip(Left) 04/19/2025 64 0.859 -0.7 -0.087 (-9.1%) 0.012 (1.5%) 04/08/2023 62 0.847 -0.8 -0.099 (-10.5% -0.012 (-1.4%) 10/03/2020 60 0.859 -0.7 -0.087 (-9.2%) -0.064 (-7.0%) 09/16/2018 58 0.924 -0.2 -0.022 (-2.4%) 0.026 (2.9%) 08/14/2016 56 0.898 -0.4 -0.048 (-5.1%) -0.012 (-1.3%) 07/06/2014 54 0.909 -0.3 -0.037 (-3.9%) -0.037 (-3.9%) 06/17/2012 52 0.946 0.0 Total Hip(Right) 04/19/2025 64 0.804 -1.1 -0.092 (-10.3% -0.013 (-1.6%) 04/08/2023 62 0.816 -1.0 -0.079 (-8.9%) -0.017 (-2.0%) 10/03/2020 60 0.833 -0.9 -0.063 (-7.0%) -0.001 (-0.1%) 09/16/2018 58 0.834 -0.9 -0.062 (-6.9%) -0.007 (-0.8%) 08/14/2016 56 0.841 -0.8 -0.055 (-6.2%) -0.018 (-2.1%) 07/06/2014 54 0.858 -0.7 -0.038 (-4.2%) -0.038 (-4.2%) 06/17/2012 52 0.896 -0.4 *Denotes significance at 95% confidence level, LSC for AP Spine = 0.022 g/cm2, LSC for Total Hip = 0.027 g/cm2 # Denotes dissimilar scan types or analysis methods Clinical Information Provided by Patient: Has used the following medications: Vitamin D, Calcium Has the following medical conditions: Hysterectomy Patient maximum height was 65 Menopause Age: 50 Onset of menses at age 10 Number of children 0 Impression: The patient has low bone mass, based on the Right Femoral Neck T-score. The patient has an estimated ten-year risk of hip fracture of 0.8% and an estimated ten-year risk of major fracture of 8.7%, based on the WHO FRAX algorithm. The BMD for the AP Spine (L1-L4) decreased, changing by -4.5% since the last DXA exam. Discussion: BONE DENSITY IS LOW AT ONE OR MORE SKELETAL SITES. This patient's lowest T-score is low at one or more skeletal sites. It meets the World Health Organization's (WHO) criteria for ?low bone mass? (T-score between -1.0 and -2.5). The patient's 10-year risk of fracture as calculated by FRAX is less than the threshold where pharmacological therapy is recommended by the National Osteoporosis Foundation (NOF). However, all treatment decisions require clinical judgment and consideration of individual patient factors, including patient preferences, comorbidities, previous drug use, risk factors not captured in the FRAX model (e.g., frailty, falls, vitamin D deficiency, increased bone turnover, interval significant decline in bone density) and possible under or overestimation of fracture risk by FRAX. The patient should follow a healthful lifestyle (good nutrition with adequate calcium and vitamin D, and appropriate weight-bearing exercise). Follow-Up: Consider repeating this study in 2 years to reassess this patient's status, or sooner if there is some new clinical indication. Reported by: EL on 04/19/2025 9:46:00 AM. Reviewed, dictated and finalized at location A.
== END 2025-04-19 09:07 | disposition home or self-care (01) ==
LOC: ANHFOHIMG 09:07
PROVIDERS: PCP Family Medicine; Visit Provider Obstetrics & Gynecology
DX: Z78.0 Asymptomatic menopausal state (principal); M85.851 Other specified disorders of bone density and structure, right thigh
CPT/HCPCS: 77080